=== PATIENT | female | born 2000 | race African-American/Black ===

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

== ENCOUNTER 2022-01-14 08:39 | Emergency (ER) | payer OTHER ==
[2022-01-14 09:04] LABS: Bilirubin Negative (Negative); Blood, Urine Negative (Negative); Clarity Clear (Clear); Glucose, Urine (Dipstick) Negative (Negative); Ketone, Urine Negative (Negative); Leukocyte Negative (Negative); Nitrite Negative (Negative); Protein, Urine (Dipstick) Negative (Neg-Trace); Urobilinogen 0.2 mg/dL (Less than 2)
[2022-01-14 09:05] LABS: Pregnancy Test - Urine (BHCG) Negative (Negative); Pregu Control Background? CLEAR/WHITE (CLR/WHITE); Pregu Control Bar Appear? YES (CONTROL BAR)
== END 2022-01-14 09:15 | disposition home or self-care (01) ==
LOC: NAV ERS 08:39
DX: S39.012A Strain of muscle, fascia and tendon of lower back, initial encounter (principal); E66.01 Morbid (severe) obesity due to excess calories; X50.1XXA Overexertion from prolonged static or awkward postures, initial encounter; Z68.45 Body mass index [BMI] 70 or greater, adult
CPT/HCPCS: 81003; 81025; 99283

== ENCOUNTER 2023-06-24 13:36 | Emergency (ER) | payer OTHER ==
[2023-06-24] MEDS ORDERED: Lidocaine 1% (PF) 30 ML VIAL ONE (13:58)
[2023-06-24] MEDS ORDERED: Sulfameth/Trimethoprim DS 800-160mg TAB ONE (14:14)
== END 2023-06-24 14:20 | disposition home or self-care (01) ==
LOC: NAV ERS 13:36
DX: L02.31 Cutaneous abscess of buttock (principal)
CPT/HCPCS: 10080; J2001

== ENCOUNTER 2023-06-28 13:19 | Emergency (ER) | payer OTHER ==
[2023-06-28] MEDS ORDERED: Lidocaine 1% (PF) 30 ML VIAL ONE (13:56)
== END 2023-06-28 14:50 | disposition home or self-care (01) ==
LOC: NAV ERS 13:19
DX: L05.01 Pilonidal cyst with abscess (principal)
CPT/HCPCS: 10080; 87070; 87205; J2001

== ENCOUNTER 2023-06-30 08:55 | Emergency (ER) | payer OTHER ==
[2023-06-30] MEDS ORDERED: Sodium Chloride 0.9% 2,000 ML ONE (09:15)
[2023-06-30] MEDS ORDERED: Ondansetron PF 4 MG/2 ML Vial ONE (09:15)
[2023-06-30] MEDS ORDERED: Piperacillin/Tazobactam 4.5 GM VIAL ONE (09:15)
[2023-06-30] MEDS ORDERED: Bupivacaine 0.5% 10 ML VIAL ONE (09:16)
[2023-06-30] MEDS ORDERED: Sodium Chloride 0.9% 100 ML ONE (09:16)
[2023-06-30] MEDS ORDERED: Acetaminophen 500 MG TAB ONE (09:22)
[2023-06-30] MEDS ORDERED: Morphine 4 MG/ML VIAL ONE (09:24)
[2023-06-30 09:30] LABS: #Basophils 0.1 thou/uL (0.0-0.2); #Eosinphils 0.1 thou/uL (0.0-0.7); #Lymphocytes 0.6 thou/uL (1.20-3.40); #Monocytes 0.4 thou/uL (0.11-0.59); #Neutrophils 3.7 thou/uL (1.40-6.50); %Basophils 1.2 % (0.0-1.0); %Eosinophils 1.9 % (0.0-10.0); %Lymphocytes 11.3 % (21.0-51.0); %Monocytes 8.8 % (0.0-10.0); %Neutrophils 76.7 % (42.0-75.0); Hemoglobin 10.4 g/dL (12.0-16.0); Mean Corpuscular HGB CONC 31.4 g/dL (32.0-36.0); Mean Corpuscular Volume 86.1 fl (78.0-98.0); Mean Platelet Volume 8.2 fL (7.4-10.4); Platelet Count 228 10x3/uL (130-400); RBC Distribution Width 12.9 % (11.5-14.5); Red Blood Cell (RBC) Count 3.84 mill/uL (4.20-5.40); White Blood Cell (WBC) Count 4.8 10x3/uL (4.8-10.8)
[2023-06-30 09:35] LABS: ALT (SGPT) 21 U/L (8-55); AST (SGOT) 35 U/L (5-34); Albumin 3.5 g/dL (3.5-5.0); Alkaline Phosphatase 76 U/L (40-110); Anion Gap 15 mmol/L (10-20); BUN (Urea Nitrogen) 7 mg/dL (7.0-18.7); Bilirubin, Total 0.3 mg/dL (0.2-1.2); Calc. Creatinine Clearance 0 mL/min (70-130); Calcium 8.5 mg/dL (7.8-10.44); Carbon Dioxide 19 mmol/L (22-29); Chloride 105 mmol/L (98-107); Estimated GFR 75; Glucose 106 mg/dL (70-105); Protein, Total 7.5 g/dL (6.0-8.3); Sodium 135 mmol/L (136-145)
[2023-06-30 09:39] LABS: Base Excess-Venous -0.3 mmol/L (-2.0 to 3.0); Bicarbonate (HCO3v) 23.6 mmol/L (22.0-28.0); CO2 Tension (PvCO2) 34.9 mmHg (42.0-51.0); Calcium, Ionized 1.08 mmol/L (1.15-1.33); Chloride 104 mmol/L (98-107); Hemoglobin - Calc 12.1 g/dL (12.0-16.0); Potassium 4.4 mmol/L (3.5-5.1); Sodium 136 mmol/L (138-145); T. Carbon Dioxide 24.6 mmol/L (22.0-28.0); vO2 Saturation-calc 73.9 % (60.0-85.0)
[2023-06-30 09:45] LABS: INR-International Normal Ratio 1.1; Prothrombin Time 14.6 sec (12.0-14.7)
[2023-06-30 09:46] LABS: PTT 36.4 sec (22.9-36.1)
[2023-06-30 09:56] LABS: Bilirubin Negative (Negative); Blood, Urine Negative (Negative); Glucose, Urine (Dipstick) Negative (Negative); Ketone, Urine Negative (Negative); Leukocyte Negative (Negative); Nitrite Negative (Negative); Protein, Urine (Dipstick) 30 mg/dL (Neg-Trace)
[2023-06-30 10:04] LABS: Clarity Hazy (Clear); Specific Gravity, Urine 1.032 (1.002-1.036)
[2023-06-30 10:06] LABS: Bacteria/HPF Rare-Few HPF (None Seen); CAUTI Indications for Culture Fever or rigors; Mucous/LPF 2+ LPF (<2+); Squamous Epithelial 0-3 HPF (0-3); WBC/HPF 0-3 HPF (0-3)
[2023-06-30 10:07] LABS: Urine Culture Reflex No No
[2023-06-30] MEDS ORDERED: Vancomycin 1 GM VIAL ONE (10:12)
[2023-06-30] MEDS ORDERED: Sodium Chloride 0.9% 250 ML 250 ML ONE (10:12)
[2023-06-30] MEDS ORDERED: Boostrix 0.5 ML (Tdap) VIAL (>/=7 yrs of age) ONE (10:35)
== END 2023-06-30 11:59 | disposition home or self-care (01) ==
LOC: NAV ERS 08:55
DX: Z48.00 Encounter for change or removal of nonsurgical wound dressing (principal); R50.9 Fever, unspecified
CPT/HCPCS: 10080; 80053; 81001; 82330; 82803; 83605; 85025; 85610; 85730; 87040; 87086; 90471; 90715; 96365; 96367; 96374; 96375; J2270; J2405; J2543; J3370; J3490; J7050

== ENCOUNTER 2023-07-02 12:06 | Emergency (ER) | payer OTHER | END 2023-07-02 12:45 | disposition home or self-care (01) | LOC: NAV ERS 12:06 | DX: Z48.817 Encounter for surgical aftercare following surgery on the skin and subcutaneous tissue (principal); L05.01 Pilonidal cyst with abscess | CPT/HCPCS: 99282 ==

== ENCOUNTER 2023-07-04 14:33 | Emergency (ER) | payer OTHER | END 2023-07-04 15:04 | disposition home or self-care (01) | LOC: NAV ERS 14:33 | DX: Z48.817 Encounter for surgical aftercare following surgery on the skin and subcutaneous tissue (principal); L05.01 Pilonidal cyst with abscess; R11.0 Nausea | CPT/HCPCS: 99282 ==